=== PATIENT | male | born 1980 | race Caucasian/White ===

== ENCOUNTER 2019-02-07 09:37 | Day surgery (SDC) | payer MEDICARE, MEDICAID ==
[2019-02-06 14:02] LABS: Basophils # (auto) 0.1 uL; Basophils % (auto) 0.6 % (0.0-2.0); Eosinophils # (auto) 0.1 uL; Eosinophils % (auto) 0.7 % (0.0-7.0); Hematocrit 46.6 % (41.0-53.0); Hemoglobin 15.8 g/dL (13.5-17.5); Lymphocytes # (auto) 1.6 uL; Lymphocytes % (auto) 18.8 % (10.0-50.0); Mean Corpuscular Hemoglobin 30.4 pg (28.0-32.0); Mean Corpuscular Hgb Conc. 33.9 g/dL (32.0-36.0); Mean Corpuscular Volume 89.5 fL (80.0-100.0); Monocytes # (auto) 0.5 uL; Monocytes % (auto) 5.8 % (0.0-12.0); Neutrophils # (auto) 6.3 uL; Neutrophils % (auto) 74.1 % (37.0-80.0); Platelet Count (auto) 330 10^3/uL (140-450); Red Cell Distribution Width 13.7 % (11.8-14.3); White Blood Cell 8.6 10^3/uL (4.4-10.8)
[2019-02-06 14:09] LABS: Urine Bacteria NONE SEEN /hpf (None Seen); Urine Blood Negative /uL (Negative); Urine Mucus FEW (None Seen); Urine Specific Gravity 1.024 (1.001-1.035); Urine WBC 1 /hpf (0 - 3)
[2019-02-06 14:31] LABS: INR 0.94 (0.9-1.15); Partial Thromboplastin Time 25.4 sec (23.64-32.05)
[2019-02-06 14:33] LABS: Albumin 4.1 g/dL (3.4-5.0); BUN/Creatinine Ratio 9.6; Calcium 8.6 mg/dL (8.5-10.1); Potassium 3.9 mmol/L (3.5-5.1)
[2019-02-06 14:36] LABS: Bilirubin, Total 0.7 mg/dL (0.2-1.0); Total Protein 7.2 g/dL (6.4-8.2)
[~2019-02-07] VITALS: Ht 193 cm; Wt 99.8 kg
[2019-02-07] MEDS ORDERED: ceFAZolin 1GM/50ML 50 ML IV ONE (11:20)
[2019-02-07] MEDS ORDERED: ROPIVACAINE 0.5% (5MG/ML) 20ML AMPULE IJ ONE (13:12)
[2019-02-07] MEDS ORDERED: MEPERIDINE HCL (25 MG/ML) 1ML VIAL ONE (13:25)
[2019-02-07] MEDS ORDERED: MIDAZOLAM HCL 1MG/1ML-2 ML VIAL ONE (13:26)
[2019-02-07] MEDS ORDERED: fentaNYL CITRATE 100 MCG/2 ML VL ONE (13:26)
[2019-02-07] MEDS ORDERED: DexAMETHasone SOD PHOS 10MG/1ML VIAL INJ ONE (13:30)
[2019-02-07] MEDS ORDERED: PROPOFOL 10 MG/ML 20 ML IV ONE (13:30)
[2019-02-07] MEDS ORDERED: ePHEDrine SULFATE 50 MG/ML AMP IV PRN (14:30)
[2019-02-07] MEDS ORDERED: LABETALOL HCL 5 MG/ML 4ML SYRINGE IV PRN (14:30)
[2019-02-07] MEDS ORDERED: HYDROmorphone HCL 2 MG/ML VL IV PRN (14:30)
[2019-02-07] MEDS ORDERED: ONDANSETRON HCL 4 MG/2 ML VIAL IV ONE (14:30)
[2019-02-07] MEDS ORDERED: MIDAZOLAM HCL 1MG/1ML-2 ML VIAL IV PRN (14:30)
[2019-02-07] MEDS ORDERED: KETOROLAC TROMETH 15 mg/ml 1ML VL IV ONE (14:30)
[2019-02-07] MEDS ORDERED: KETOROLAC TROMETH 60MG/2ML VIAL ONE (14:31)
[2019-02-07 14:46] VITALS: BP 122/77
[2019-02-07] MEDS ORDERED: MORPHINE SULFATE 4 MG/ML SYR/VIAL IV ONE (16:00)
== END 2019-02-07 15:00 | disposition home or self-care (01) ==
LOC: SUR 09:37
PROVIDERS: ATTEND Podiatrist Foot & Ankle Surgery
DX: Q66.52 Congenital pes planus, left foot (principal); Q66.89 Other specified congenital deformities of feet; I25.2 Old myocardial infarction; G40.909 Epilepsy, unspecified, not intractable, without status epilepticus; I10 Essential (primary) hypertension
CPT/HCPCS: 27687; 28725; 36415; 73620; 80053; 81001; 85025; 85610; 85730; 93005; C1769; J0690; J1100; J1885; J2175; J2250; J2704; J2795; J3010

== ENCOUNTER 2019-07-04 08:43 | Day surgery (SDC) | payer MEDICARE, MEDICAID ==
[~2019-07-04] VITALS: Ht 193 cm; Wt 97.5 kg
[~2019-07-04 08:43] MED LIST: BENZ1TAB2 PO; DIVA500T4 PO; LURA40TA PO; MIRT30TA PO
[2019-07-04] MEDS ORDERED: ceFAZolin 1GM/50ML 50 ML IV ONE (09:19)
[2019-07-04 09:25] LABS: Basophils # (auto) 0.1 uL; Basophils % (auto) 0.8 % (0.0-2.0); Eosinophils # (auto) 0.1 uL; Eosinophils % (auto) 1.5 % (0.0-7.0); Hematocrit 44.3 % (41.0-53.0); Hemoglobin 15.3 g/dL (13.5-17.5); Lymphocytes # (auto) 2.3 uL; Lymphocytes % (auto) 30.1 % (10.0-50.0); Mean Corpuscular Hemoglobin 31.1 pg (28.0-32.0); Mean Corpuscular Hgb Conc. 34.6 g/dL (32.0-36.0); Mean Corpuscular Volume 90.1 fL (80.0-100.0); Monocytes # (auto) 0.5 uL; Monocytes % (auto) 6.1 % (0.0-12.0); Neutrophils # (auto) 4.8 uL; Neutrophils % (auto) 61.5 % (37.0-80.0); Platelet Count (auto) 289 10^3/uL (140-450); Red Blood Cells 4.91 10^6/uL (4.5-5.90); Red Cell Distribution Width 13.9 % (11.8-14.3); White Blood Cell 7.8 10^3/uL (4.4-10.8)
[2019-07-04 09:40] LABS: INR 0.99 (0.9-1.15); Partial Thromboplastin Time 26.2 sec (23.64-32.05)
[2019-07-04 09:43] LABS: BUN/Creatinine Ratio 12.6; Calcium 8.9 mg/dL (8.5-10.1)
[2019-07-04] MEDS ORDERED: ROPIVACAINE 0.5% (5MG/ML) 20ML AMPULE IJ ONE (09:58)
[2019-07-04] MEDS ORDERED: NEOMYCIN-BACITRACIN-POLYM 15GM TOP OINT TOP ONE (09:59)
[2019-07-04] MEDS ORDERED: MEPERIDINE HCL (25 MG/ML) 1ML VIAL ONE (10:27)
[2019-07-04] MEDS ORDERED: MIDAZOLAM HCL 1MG/1ML-2 ML VIAL ONE (10:28)
[2019-07-04] MEDS ORDERED: fentaNYL CITRATE 100 MCG/2 ML VL ONE (10:28)
[2019-07-04] MEDS ORDERED: HYDROmorphone HCL 2 MG/ML VL IV PRN (10:30)
[2019-07-04] MEDS ORDERED: MORPHINE SULFATE 4 MG/ML SYR/VIAL IV PRN (10:30)
[2019-07-04] MEDS ORDERED: KETOROLAC TROMETH 30 MG/ML 1ML VIAL IV ONE (10:30)
[2019-07-04] MEDS ORDERED: LABETALOL HCL 5 MG/ML 4ML SYRINGE IV PRN (10:30)
[2019-07-04] MEDS ORDERED: ONDANSETRON HCL 4 MG/2 ML VIAL IV PRN (10:30)
[2019-07-04] MEDS ORDERED: MIDAZOLAM HCL 1MG/1ML-2 ML VIAL IV PRN (10:30)
[2019-07-04] MEDS ORDERED: ePHEDrine SULFATE 50 MG/ML AMP IV PRN (10:30)
[2019-07-04] MEDS ORDERED: DexAMETHasone SOD PHOS 10MG/1ML VIAL INJ ONE (10:32)
[2019-07-04] MEDS ORDERED: PROPOFOL 10 MG/ML 20 ML IV ONE (10:45)
[2019-07-04 11:36] VITALS: BP 119/81
== END 2019-07-04 11:48 | disposition home or self-care (01) ==
LOC: SUR 08:43
PROVIDERS: ATTEND Podiatrist Foot & Ankle Surgery
DX: Q66.52 Congenital pes planus, left foot (principal); Q66.89 Other specified congenital deformities of feet; I25.2 Old myocardial infarction; I10 Essential (primary) hypertension; G40.909 Epilepsy, unspecified, not intractable, without status epilepticus; F31.9 Bipolar disorder, unspecified; Z79.899 Other long term (current) drug therapy
CPT/HCPCS: 28725; 29999; 36415; 73620; 80048; 85025; 85610; 85730; C1713; C1769; J0690; J1100; J2175; J2250; J2704; J2795; J3010